=== PATIENT | male | born 1980 | race Caucasian/White ===

== ENCOUNTER 2017-03-10 20:01 | Emergency (ER) | payer OTHER ==
[~2017-03-10] VITALS: Ht 170.2 cm; Wt 75.1 kg
[2017-03-10 22:40] VITALS: BP 145/71
== END 2017-03-10 22:41 | disposition home or self-care (01) ==
LOC: EME 20:01
PROC: 0HQCXZZ Repair Left Upper Arm Skin, External Approach (ICD-10-PCS; principal; 2017-03-10)
DX: S51.012A Laceration without foreign body of left elbow, initial encounter (principal); S60.812A Abrasion of left wrist, initial encounter; S69.92XA Unspecified injury of left wrist, hand and finger(s), initial encounter; V89.2XXA Person injured in unspecified motor-vehicle accident, traffic, initial encounter
CPT/HCPCS: 73090; 73140; 99281; 99284